=== PATIENT | male | born 1955 | race Caucasian/White ===

== ENCOUNTER 2020-10-08 14:20 | Inpatient (IN) ==
[2020-10-08] MEDS ORDERED: PANTOPRAZOLE 40 MG VIAL IV STA (14:43)
[2020-10-08] MEDS ORDERED: SODIUM CHLORIDE 0.9% 1,000 ML IV STA (14:43)
[2020-10-08] MEDS ORDERED: ONDANSETRON 4 MG/2 ML VIAL IV STA (14:43)
[2020-10-08 15:24] LABS: Basophils # 0.1 10*3/uL (0.0-0.2); Basophils % 0.5 % (0.0-0.8); Eosinophils % 0.1 % (0.00-10.9); Hemoglobin 7.1 GM/DL (14.0-18.0); Immature Granulocytes % 3.7 %; Immature Granulocytes Absolute 0.78 #; Lymphocytes # 2.4 10*3/uL (1.4-4.0); Lymphocytes % 11.2 % (21.2-54.2); Mean Corpuscular HGB Conc 33.8 GM/DL (32-36); Mean Platelet Volume 10.3 FL (9.6-12.0); Monocytes % 4.4 % (1.7-12.7); Neutrophils % 80.1 % (38.7-73.9); Platelet Count 473 T/CUMM (130-400); Red Blood Count 2.56 MC/CUMM (3.8-5.5); Red Cell Distribution Width 14.2 % (9.3-17.3); White Blood Count 21.3 T/CUMM (4-12)
[2020-10-08 15:45] LABS: INR 1.3; Partial Thromboplastin Time < 20.0 SECS (23.9-33.8)
[2020-10-08 15:49] LABS: Albumin 2.9 G/DL (3.4-5.0); Bilirubin,Total 1.1 MG/DL (0.2-1.0); Calcium 8.3 MG/DL (8.5-10.1); Osmolality,Calculated 295.2 MOS/KG (273-304); Total Protein 5.7 G/DL (6.4-8.3)
[2020-10-08] MEDS ORDERED: ONDANSETRON 4 MG/2 ML VIAL IV PRN (15:52)
[2020-10-08] MEDS ORDERED: ALBUTEROL 2.5 MG/3 ML NEB RESP TX PRN (15:52)
[2020-10-08] MEDS ORDERED: ACETAMINOPHEN 325 MG TABLET PO PRN (15:52)
[2020-10-08] MEDS ORDERED: SODIUM CHLORIDE 0.9% 1,000 ML IV PRN ×2 (15:59→17:33)
[2020-10-08 16:08] LABS: Lymphocytes 6 % (20-55); Myelocytes 4 %; Segmented Neutrophils 88 % (50-85); Total Cells Counted 100
[2020-10-08] MEDS ORDERED: DEXAMETHASONE 4 MG/1 ML VIAL ONE (16:15)
[2020-10-08] MEDS ORDERED: ETOMIDATE 40 MG/20 ML VIAL IV ONE (16:15)
[2020-10-08] MEDS ORDERED: ROCURONIUM 50 MG/5 ML VIAL IV ONE ×2 (16:15→16:44)
[2020-10-08] MEDS ORDERED: ONDANSETRON 4 MG/2 ML VIAL ONE (16:15)
[2020-10-08] MEDS ORDERED: SUCCINYLCHOLINE 200 MG/10 ML VIAL ONE (16:15)
[2020-10-08] MEDS ORDERED: MIDAZOLAM 2 MG/2 ML VIAL ONE (16:15)
[2020-10-08] MEDS ORDERED: propofoL 200 MG/20 ML VIAL IV ONE (16:15)
[2020-10-08] MEDS ORDERED: PHENYLEPHRINE 1 MG/10 ML SYRINGE IV ONE ×5 (16:44→17:39)
[2020-10-08] MEDS ORDERED: SEVOFLURANE 1 UNIT/15 MINUTE INH ONE (16:46)
[2020-10-08] MEDS ORDERED: EPINEPHrine 1 MG/ML VIAL ONE (16:52)
[2020-10-08] MEDS ORDERED: LACTATED RINGERS 1,000 ML IV ONE ×2 (16:57→17:17)
[2020-10-08] MEDS ORDERED: ALBUMIN 25% 25 GM/100 ML VIAL IV ONE (17:39)
[2020-10-08] MEDS: SODIUM CHLORIDE 0.9% 1,000 ML IV SCH (18:28)
[2020-10-08] MEDS: INSULIN LISPRO 100 UNIT/ML SUBCUT SCH ×2 (18:28→21:26)
[2020-10-08 19:09] LABS: Hematocrit 24.3 VOL% (42.0-52.0); Hemoglobin 8.4 GM/DL (14.0-18.0)
[2020-10-08] MEDS: PANTOPRAZOLE 40 MG VIAL IV SCH (21:25)
[2020-10-08 22:30] LABS: Hemoglobin 7.8 GM/DL (14.0-18.0)
[2020-10-09 04:24] LABS: Basophils % 0.3 % (0.0-0.8); Hematocrit 21.3 VOL% (42.0-52.0); Hemoglobin 7.4 GM/DL (14.0-18.0); Immature Granulocytes % 2.1 %; Immature Granulocytes Absolute 0.32 #; Lymphocytes # 1.2 10*3/uL (1.4-4.0); Lymphocytes % 7.8 % (21.2-54.2); Mean Corpuscular HGB Conc 34.7 GM/DL (32-36); Mean Corpuscular Volume 82.2 FL (87-102); Mean Platelet Volume 10.4 FL (9.6-12.0); Monocytes % 4.6 % (1.7-12.7); Neutrophils % 85.2 % (38.7-73.9); Red Blood Count 2.59 MC/CUMM (3.8-5.5); Red Cell Distribution Width 14.8 % (9.3-17.3); White Blood Count 15.2 T/CUMM (4-12)
[2020-10-09 04:25] LABS: Platelet Count 236 T/CUMM (130-400)
[2020-10-09 04:41] LABS: Albumin 3.1 G/DL (3.4-5.0); Bilirubin,Total 1.2 MG/DL (0.2-1.0); Calcium 7.8 MG/DL (8.5-10.1); Osmolality,Calculated 290.7 MOS/KG (273-304); Risk Ratio 3.76; Total Protein 5.7 G/DL (6.4-8.3); VLDL CHOLESTEROL 27.6 MG/DL
[2020-10-09] MEDS: SODIUM CHLORIDE 0.9% 1,000 ML IV SCH ×2 (06:32→17:22)
[2020-10-09] MEDS ORDERED: CALCIUM GLUCONATE 1,000 MG in SODIUM CHLORIDE 0.9% 100 ML IV ONE (09:30)
[2020-10-09] MEDS: PANTOPRAZOLE 40 MG VIAL IV SCH ×2 (09:47→20:54)
[2020-10-09] MEDS: INSULIN LISPRO 100 UNIT/ML SUBCUT SCH ×4 (09:49→20:54)
[2020-10-09] MEDS ORDERED: EPINEPHrine 1 MG/ML VIAL ONE ×2 (09:49→09:50)
[2020-10-09] MEDS ORDERED: fentaNYL 100 MCG/2 ML VIAL ONE (09:54)
[2020-10-09] MEDS ORDERED: MIDAZOLAM 2 MG/2 ML VIAL ONE (09:54)
[2020-10-09] MEDS ORDERED: MIDAZOLAM 2 MG/2 ML VIAL IV ONE (10:09)
[2020-10-09] MEDS ORDERED: fentaNYL 100 MCG/2 ML VIAL IV ONE (10:09)
[2020-10-09] MEDS ORDERED: HEPARIN/NACL 0.9% 2 UNITS/ML 1,000 ML IV ONE (10:19)
[2020-10-09] MEDS ORDERED: HEPARIN/NACL 0.9% 2 UNITS/ML 2,000 ML IV ONE (10:22)
[2020-10-09 14:27] LABS: Hematocrit 23.6 VOL% (42.0-52.0); Hemoglobin 8.2 GM/DL (14.0-18.0)
[2020-10-09 18:40] LABS: Hematocrit 21.6 VOL% (42.0-52.0); Hemoglobin 7.4 GM/DL (14.0-18.0)
[2020-10-10 01:46] LABS: Hematocrit 17.9 VOL% (42.0-52.0); Hemoglobin 6.1 GM/DL (14.0-18.0)
[2020-10-10] MEDS ORDERED: SODIUM CHLORIDE 0.9% 1,000 ML IV PRN ×3 (02:11→14:51)
[2020-10-10] MEDS: SODIUM CHLORIDE 0.9% 1,000 ML IV SCH ×3 (03:16→19:02)
[2020-10-10 04:50] LABS: Basophils % 0.2 % (0.0-0.8); Hematocrit 18.5 VOL% (42.0-52.0); Immature Granulocytes % 5.4 %; Immature Granulocytes Absolute 0.94 #; Lymphocytes # 1.6 10*3/uL (1.4-4.0); Mean Corpuscular Volume 86.4 FL (87-102); Mean Platelet Volume 10.8 FL (9.6-12.0); Monocytes % 7.3 % (1.7-12.7); NRBC # 0.17 10*3/uL; Neutrophils % 78.1 % (38.7-73.9); Platelet Count 229 T/CUMM (130-400); Red Blood Count 2.14 MC/CUMM (3.8-5.5); Red Cell Distribution Width 15.8 % (9.3-17.3); White Blood Count 17.5 T/CUMM (4-12)
[2020-10-10 05:10] LABS: Albumin 2.4 G/DL (3.4-5.0); Bilirubin,Total 1.3 MG/DL (0.2-1.0); Calcium 7.3 MG/DL (8.5-10.1); Hemoglobin 6.1 GM/DL (14.0-18.0); Osmolality,Calculated 293.7 MOS/KG (273-304); Total Protein 4.6 G/DL (6.4-8.3)
[2020-10-10 05:16] LABS: Band Neutrophils 1 % (0-10); Hypochromasia 2+; Lymphocytes 5 % (20-55); Microcytosis 1+; Nucleated Red Blood Cells 1 (0-5); Platelet Estimate Adequate; Segmented Neutrophils 90 % (50-85); Total Cells Counted 100
[2020-10-10] MEDS: INSULIN LISPRO 100 UNIT/ML SUBCUT SCH ×4 (08:29→21:49)
[2020-10-10] MEDS: PANTOPRAZOLE 40 MG VIAL IV SCH ×2 (08:30→21:44)
[2020-10-10 10:09] LABS: Hematocrit 22.5 VOL% (42.0-52.0)
[2020-10-10 10:10] LABS: Hemoglobin 7.8 GM/DL (14.0-18.0)
[2020-10-10 19:30] LABS: Hemoglobin 10.1 GM/DL (14.0-18.0)
[2020-10-10] MEDS: AMOXICILLIN 500 MG CAPSULE PO SCH (21:44)
[2020-10-10] MEDS: CLARITHROMYCIN 500 MG TABLET PO SCH (21:44)
[2020-10-11] MEDS: SODIUM CHLORIDE 0.9% 1,000 ML IV SCH ×2 (01:12→08:29)
[2020-10-11 05:48] LABS: Basophils % 0.1 % (0.0-0.8); Hematocrit 25.2 VOL% (42.0-52.0); Hemoglobin 8.6 GM/DL (14.0-18.0); Immature Granulocytes % 4.6 %; Immature Granulocytes Absolute 0.42 #; Lymphocytes # 1.1 10*3/uL (1.4-4.0); Lymphocytes % 11.4 % (21.2-54.2); Mean Corpuscular HGB Conc 34.1 GM/DL (32-36); Mean Corpuscular Volume 85.7 FL (87-102); Mean Platelet Volume 10.3 FL (9.6-12.0); Monocytes % 8.5 % (1.7-12.7); NRBC # 0.05 10*3/uL; Neutrophils % 75.4 % (38.7-73.9); Platelet Count 152 T/CUMM (130-400); Red Blood Count 2.94 MC/CUMM (3.8-5.5); Red Cell Distribution Width 15.6 % (9.3-17.3); White Blood Count 9.2 T/CUMM (4-12)
[2020-10-11 06:03] LABS: Calcium 7.7 MG/DL (8.5-10.1); Osmolality,Calculated 295.1 MOS/KG (273-304)
[2020-10-11] MEDS: INSULIN LISPRO 100 UNIT/ML SUBCUT SCH ×4 (08:26→21:38)
[2020-10-11] MEDS: AMOXICILLIN 500 MG CAPSULE PO SCH ×2 (08:27→21:38)
[2020-10-11] MEDS: PANTOPRAZOLE 40 MG VIAL IV SCH ×2 (08:27→21:39)
[2020-10-11] MEDS: CLARITHROMYCIN 500 MG TABLET PO SCH ×2 (08:27→21:38)
[2020-10-11 10:47] LABS: Hemoglobin 8.8 GM/DL (14.0-18.0)
[2020-10-11] MEDS: POLYETHYLENE GLYCOL POWDER 17 GM PACK PO SCH (21:39)
[2020-10-12 01:45] LABS: Hemoglobin 7.5 GM/DL (14.0-18.0)
[2020-10-12 01:46] LABS: Hematocrit 21.9 VOL% (42.0-52.0)
[2020-10-12 06:23] LABS: Basophils % 0.2 % (0.0-0.8); Eosinophils % 0.2 % (0.00-10.9); Hematocrit 24.8 VOL% (42.0-52.0); Hemoglobin 8.3 GM/DL (14.0-18.0); Immature Granulocytes % 2.7 %; Immature Granulocytes Absolute 0.16 #; Lymphocytes # 1.1 10*3/uL (1.4-4.0); Lymphocytes % 18.3 % (21.2-54.2); Mean Corpuscular HGB Conc 33.5 GM/DL (32-36); Mean Corpuscular Volume 86.1 FL (87-102); Mean Platelet Volume 10.5 FL (9.6-12.0); Monocytes % 10.3 % (1.7-12.7); NRBC # 0.04 10*3/uL; Neutrophils % 68.3 % (38.7-73.9); Platelet Count 168 T/CUMM (130-400); Red Blood Count 2.88 MC/CUMM (3.8-5.5); Red Cell Distribution Width 15.3 % (9.3-17.3)
[2020-10-12 08:17] LABS: Calcium 7.7 MG/DL (8.5-10.1)
[2020-10-12] MEDS: POLYETHYLENE GLYCOL POWDER 17 GM PACK PO SCH (09:17)
[2020-10-12] MEDS: AMOXICILLIN 500 MG CAPSULE PO SCH (09:18)
[2020-10-12] MEDS: PANTOPRAZOLE 40 MG VIAL IV SCH (09:18)
[2020-10-12] MEDS: INSULIN LISPRO 100 UNIT/ML SUBCUT SCH ×2 (09:21→12:38)
[2020-10-12] MEDS ORDERED: SODIUM CHLORIDE 0.9% 1,000 ML IV PRN ×2 (09:28→12:24)
[2020-10-12] MEDS: CLARITHROMYCIN 500 MG TABLET PO SCH (10:54)
[2020-10-12 11:40] LABS: Hemoglobin 8.3 GM/DL (14.0-18.0)
[2020-10-12 17:11] LABS: Hematocrit 28.1 VOL% (42.0-52.0); Hemoglobin 9.5 GM/DL (14.0-18.0)
[2020-10-12 17:16] VITALS: BP 182/84
== END 2020-10-12 17:43 | disposition home or self-care (01) | DRG 981 ==
LOC: EDUNIT# → EDBD → N.ED 14:20 → SUATTDRO 15:52 → N.EDINP 15:52 → N.ICU 17:55 → N.TELES 10-11 23:41
PROVIDERS: ADMIT Internal Medicine; ATTEND Internal Medicine